=== PATIENT | male | born 1980 | race African-American/Black ===

== ENCOUNTER 2016-11-09 22:35 | Emergency (ER) | payer SELFPAY ==
[2016-11-09 22:54] VITALS: BP 119/81
== END 2016-11-09 23:25 | disposition left against medical advice (07) ==
LOC: ER 22:35
DX: Z53.9 Procedure and treatment not carried out, unspecified reason (principal); R07.9 Chest pain, unspecified

== ENCOUNTER 2016-11-15 18:42 | Emergency (ER) | payer OTHER ==
[2016-11-15] MEDS ORDERED: IBUPROFEN 600 MG TABLET PO ONE (21:07)
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
[2016-11-15 22:10] VITALS: BP 140/80
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
== END 2016-11-15 22:12 | disposition home or self-care (01) ==
LOC: ER 18:42
DX: S20.219A Contusion of unspecified front wall of thorax, initial encounter (principal); R07.9 Chest pain, unspecified; M54.5 Low back pain; V49.60XA Unspecified car occupant injured in collision with unspecified motor vehicles in traffic accident, initial encounter; F17.200 Nicotine dependence, unspecified, uncomplicated
CPT/HCPCS: 71020; 99284

== ENCOUNTER 2018-08-23 03:10 | Emergency (ER) | payer OTHER ==
[2018-08-23] MEDS ORDERED: LIDOCAINE 1%/EPINEPHRINE INJ 20 ML VIAL INJ ONE (04:50)
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
[2018-08-23 05:35] VITALS: BP 129/78
== END 2018-08-23 05:32 | disposition home or self-care (01) ==
LOC: ER 03:10
PROC: 0HQ1XZZ Repair Face Skin, External Approach (ICD-10-PCS; principal; 2018-08-23)
DX: S01.112A Laceration without foreign body of left eyelid and periocular area, initial encounter (principal); W22.8XXA Striking against or struck by other objects, initial encounter
CPT/HCPCS: 99282; 12011; J3490